=== PATIENT | female | born 1970 | race Two or more races ===

== ENCOUNTER 2018-06-10 19:23 | Emergency (ER) | payer MEDICAID ==
[~2018-06-10] VITALS: Ht 160 cm; Wt 63.4 kg
[~2018-06-10 19:23] MED LIST: AMLO10TA4 PO
[2018-06-10 22:29] LABS: BASOPHILS % (AUTO) 0.3 % (0-1); EOSINOPHILS # (AUTO) 0.2 X10'3 (0-0.9); EOSINOPHILS % (AUTO) 3.2 % (0-6); HEMOGLOBIN 14.1 g/dl (12.0-16.0); LYMPHOCYTES # (AUTO) 1.2 X10'3 (1.1-4.8); LYMPHOCYTES % (AUTO) 18.8 % (21-51); MEAN CORPUSCULAR HEMOGLOBIN 32.8 PG (27.0-31.0); MEAN CORPUSCULAR HGB CONC 35.2 % (33.0-36.5); MEAN CORPUSCULAR VOLUME 93.2 FL (78-98); MEAN PLATELET VOLUME 6.9 FL (7.4-10.4); MONOCYTES # (AUTO) 0.5 X10'3 (0-0.9); MONOCYTES % (AUTO) 8.2 % (2-12); NEUTROPHILS # (AUTO) 4.3 X10'3 (1.8-7.7); NEUTROPHILS % (AUTO) 69.5 % (42-75); PLATELET COUNT 288 X10'3 (140-440); RED BLOOD COUNT 4.29 X10'6 (4.20-5.60); RED CELL DISTRIBUTION WIDTH 12.1 % (11.5-14.5); WHITE BLOOD COUNT 6.2 X10'3 (4.5-11.0)
[2018-06-10 22:41] LABS: PARTIAL THROMBOPLASTIN TIME 25 SECONDS (22-32); PROTHROMBIN TIME 9.9 SECONDS (9.0-12.0)
[2018-06-10 22:46] LABS: ALANINE AMINOTRANSFERASE 29 U/L (12-78); ALBUMIN 4.3 G/DL (3.4-5.0); ALBUMIN/GLOBULIN RATIO 1.4 (1.1-1.5); ALKALINE PHOSPHATASE 72 IU/L (46-116); ANION GAP 12 (8-16); ASPARTATE AMINO TRANSFERASE 18 U/L (10-37); BILIRUBIN,TOTAL 0.5 MG/DL (0.1-1.0); BLOOD UREA NITROGEN 14 MG/DL (7-18); BUN/CREATININE RATIO 14.9 (6.6-38.0); CALCIUM 8.8 MG/DL (8.5-10.1); CHLORIDE 102 MMOL/L (99-107); CREATININE 0.94 MG/DL (0.40-0.90); GLUCOSE 113 MG/DL (70-104); POTASSIUM 3.1 MMOL/L (3.5-5.1); SODIUM 139 MMOL/L (135-145); TOTAL CARBON DIOXIDE 24.8 MMOL/L (24-32); TOTAL PROTEIN 7.3 G/DL (6.4-8.2); eGFR 64 ML/MIN
[2018-06-10] MEDS ORDERED: potassium Cl 20 mEq SR tablet PO STA (23:18)
[2018-06-11 01:24] VITALS: BP 120/72
== END 2018-06-11 01:25 | disposition home or self-care (01) ==
LOC: ER 19:23
DX: R60.0 Localized edema (principal); E87.6 Hypokalemia; R07.89 Other chest pain; I10 Essential (primary) hypertension; Z79.899 Other long term (current) drug therapy
CPT/HCPCS: 36415; 71045; 80053; 83880; 84484; 85025; 85610; 85730; 93005; 93970; 99285

== ENCOUNTER 2018-06-28 11:07 | Emergency (ER) | payer MEDICAID ==
[~2018-06-28] VITALS: Ht 160 cm; Wt 66.0 kg
[2018-06-28 11:58] LABS: BASOPHILS % (AUTO) 0.4 % (0-1); EOSINOPHILS # (AUTO) 0.1 X10'3 (0-0.9); EOSINOPHILS % (AUTO) 1.8 % (0-6); HEMATOCRIT 41.6 % (35.0-45.0); HEMOGLOBIN 14.7 g/dl (12.0-16.0); LYMPHOCYTES # (AUTO) 1.5 X10'3 (1.1-4.8); LYMPHOCYTES % (AUTO) 23.7 % (21-51); MEAN CORPUSCULAR HEMOGLOBIN 32.6 PG (27.0-31.0); MEAN CORPUSCULAR HGB CONC 35.4 % (33.0-36.5); MEAN PLATELET VOLUME 6.4 FL (7.4-10.4); MONOCYTES # (AUTO) 0.3 X10'3 (0-0.9); MONOCYTES % (AUTO) 4.5 % (2-12); NEUTROPHILS # (AUTO) 4.3 X10'3 (1.8-7.7); NEUTROPHILS % (AUTO) 69.6 % (42-75); PLATELET COUNT 312 X10'3 (140-440); RED BLOOD COUNT 4.53 X10'6 (4.20-5.60); RED CELL DISTRIBUTION WIDTH 12.2 % (11.5-14.5); WHITE BLOOD COUNT 6.2 X10'3 (4.5-11.0)
[2018-06-28 12:08] LABS: PARTIAL THROMBOPLASTIN TIME 25 SECONDS (22-32)
[2018-06-28 12:11] LABS: ANION GAP 14 (8-16); BLOOD UREA NITROGEN 11 MG/DL (7-18); BUN/CREATININE RATIO 13.6 (6.6-38.0); CHLORIDE 104 MMOL/L (99-107); CREATININE 0.81 MG/DL (0.40-0.90); GLUCOSE 108 MG/DL (70-104); POTASSIUM 3.4 MMOL/L (3.5-5.1); SODIUM 140 MMOL/L (135-145); TOTAL CARBON DIOXIDE 22.3 MMOL/L (24-32); eGFR 75 ML/MIN
[2018-06-28 12:12] LABS: ALANINE AMINOTRANSFERASE 30 U/L (12-78); ALBUMIN 4.6 G/DL (3.4-5.0); ALBUMIN/GLOBULIN RATIO 1.5 (1.1-1.5); ALKALINE PHOSPHATASE 61 IU/L (46-116); ASPARTATE AMINO TRANSFERASE 19 U/L (10-37); BILIRUBIN,TOTAL 0.7 MG/DL (0.1-1.0); CALCIUM 9.2 MG/DL (8.5-10.1); TOTAL PROTEIN 7.7 G/DL (6.4-8.2)
[2018-06-28] MEDS ORDERED: orphenadrine citrate 60mg/2ml inj. IM ONE (12:20)
[2018-06-28] MEDS ORDERED: PRED20TA PO (12:42)
[2018-06-28] MEDS ORDERED: AZIT-72 PO (12:42)
[2018-06-28] MEDS ORDERED: DEXT15SY PO (12:42)
[2018-06-28 12:54] VITALS: BP 133/89
== END 2018-06-28 12:58 | disposition home or self-care (01) ==
LOC: ER 11:07
DX: J40 Bronchitis, not specified as acute or chronic (principal); I10 Essential (primary) hypertension
CPT/HCPCS: 36415; 71045; 80053; 84484; 85025; 85379; 85610; 85730; 93005; 96372; 99285; J2360